=== PATIENT | female | born 1945 | race Asian ===

== ENCOUNTER 2016-07-30 12:56 | Outpatient (CLI) | payer OTHER ==
[~2016-07-30 12:56] MED LIST: ALBU90AE13 INH; ASPIRIN325 M2 PO; CARDIZEM LA360 MG PO; CETI10TA PO; DOCU SOFT100 MG PO; DULERA1 AE1 INH; HYZAAR1 TA2 PO; LIPITOR20 MG PO; LORTAB1 TAB PO; METOPROLOL25 M1 PO; RANI150T78 PO; SPIRIVA IN
== END 2016-07-30 19:09 | disposition home or self-care (01) ==
LOC: MAMMO 12:56
DX: Z12.31 Encounter for screening mammogram for malignant neoplasm of breast (principal)
CPT/HCPCS: G0202-TC

== ENCOUNTER 2016-08-10 14:00 | Outpatient (CLI) | payer OTHER | END 2016-08-10 20:13 | disposition home or self-care (01) | LOC: RAD 14:00 | DX: M54.5 Low back pain (principal) ==

== ENCOUNTER 2016-08-11 09:10 | Outpatient (CLI) | payer OTHER ==
[~2016-08-11] VITALS: Ht 157.5 cm; Wt 92.5 kg
[2016-08-11 09:20] VITALS: BP 117/53; TEMP 98.7
== END 2016-08-11 20:27 | disposition home or self-care (01) ==
LOC: INF 09:10
DX: M85.80 Other specified disorders of bone density and structure, unspecified site (principal)
CPT/HCPCS: 36415; 82310; 96372; J0897

== ENCOUNTER 2016-11-15 10:28 | Emergency (ER) | payer OTHER ==
[~2016-11-15] VITALS: Ht 157.5 cm; Wt 93.9 kg
[2016-11-15 12:12] VITALS: BP 109/57; TEMP 98.3
== END 2016-11-15 12:12 | disposition home or self-care (01) ==
LOC: ED 10:28
DX: S90.31XA Contusion of right foot, initial encounter (principal); S96.811A Strain of other specified muscles and tendons at ankle and foot level, right foot, initial encounter; M10.9 Gout, unspecified; X58.XXXA Exposure to other specified factors, initial encounter; Y92.098 Other place in other non-institutional residence as the place of occurrence of the external cause
CPT/HCPCS: 96372; 99283

== ENCOUNTER 2016-12-24 20:50 | Outpatient (CLI) | payer OTHER | END 2016-12-24 22:00 | LOC: RAD 20:50 | DX: M79.671 Pain in right foot (principal) ==

== ENCOUNTER 2017-04-14 16:23 | Observation (INO) | payer OTHER ==
[~2017-04-14] VITALS: Ht 157.5 cm; Wt 95.8 kg
[2017-04-14] VITALS (27 sets, daily range): BP systolic 068–215; BP diastolic 56–115; TEMP 98–98.4; Ht 157.5 cm; Wt 95.8 kg
[2017-04-14 16:42] LABS: PLATELET COUNT 535 K/uL (152-353)
[2017-04-14 16:54] LABS: POTASSIUM 4.3 mmol/L (3.6-5.2)
[2017-04-14] MEDS ORDERED: ZYRTEC ALLGY10 M1 OR (16:58)
[2017-04-14] MEDS ORDERED: ZANAFLEX2 MG PO (16:58)
[2017-04-14] MEDS ORDERED: MELOXICAM15 MG OR (16:58)
[2017-04-14] MEDS ORDERED: HYDROCO/APAP1 T14 PO (16:59)
[2017-04-14] MEDS ORDERED: GABA100C2 PO (16:59)
[2017-04-14] MEDS ORDERED: GLIP10TA55 PO (16:59)
[2017-04-14] MEDS ORDERED: DALIRESP500 MC1 OR (17:00)
[2017-04-14] MEDS ORDERED: COLC0.6T6 PO (17:00)
[2017-04-14 17:09] LABS: PARTIAL THROMBOPLASTIN TIME 26.1 SECONDS (24.5-33.6)
[2017-04-15] VITALS (30 sets, daily range): BP systolic 97–185; BP diastolic 48–89; TEMP 98–98.8
[2017-04-15 06:35] LABS: PLATELET COUNT 436 K/uL (152-353)
[2017-04-15 07:03] LABS: POTASSIUM 4.7 mmol/L (3.6-5.2)
[2017-04-15 16:07] LABS: PLATELET COUNT 455 K/uL (152-353)
== END 2017-04-15 19:25 | disposition home or self-care (01) ==
LOC: ED 16:23 → ICU 18:02
PROVIDERS: Family Medicine; ADMIT Specialist
DX: R07.89 Other chest pain (principal); I10 Essential (primary) hypertension; J44.9 Chronic obstructive pulmonary disease, unspecified; K21.9 Gastro-esophageal reflux disease without esophagitis; E11.9 Type 2 diabetes mellitus without complications
CPT/HCPCS: 36415; 80053; 81000; 82550; 82553; 82962; 84484; 85027; 85610; 85730; 87040; 93005; 94760; 96361; 96365; 96372; 96375; 99220; 99284; G0378; J1650; J2270; J3490

== ENCOUNTER 2017-06-13 09:06 | Emergency (ER) | payer OTHER ==
[~2017-06-13] VITALS: Ht 157.5 cm; Wt 96.2 kg
[~2017-06-13 09:06] MED LIST changes: +COLC0.6T6 PO; +DALIRESP500 MC1 OR; +GABA100C2 PO; +GLIP10TA55 PO; +HYDROCO/APAP1 T14 PO; +MELOXICAM15 MG OR; +ZANAFLEX2 MG PO; +ZYRTEC ALLGY10 M1 OR
[2017-06-13 09:10] VITALS: TEMP 98.2
[2017-06-13 10:15] LABS: PLATELET COUNT 470 K/uL (152-353)
[2017-06-13 10:23] LABS: POTASSIUM 4.8 mmol/L (3.6-5.2)
[2017-06-13 11:06] VITALS: BP 148/74
== END 2017-06-13 11:14 | disposition home or self-care (01) ==
LOC: ED 09:06
PROVIDERS: Specialist
DX: J44.1 Chronic obstructive pulmonary disease with (acute) exacerbation (principal)
CPT/HCPCS: 36600; 80053; 82550; 82553; 82805; 83880; 84484; 85027; 85379; 93005; 94664; 99284; J1100

== ENCOUNTER 2017-06-23 10:15 | Observation (INO) | payer OTHER ==
[~2017-06-23] VITALS: Ht 160 cm; Wt 93.1 kg
[2017-06-23 12:10] LABS: POTASSIUM 4.3 mmol/L (3.6-5.2)
[2017-06-23 12:48] LABS: PLATELET COUNT 671 K/uL (152-353)
[2017-06-23 13:54] VITALS: BP 100/42; TEMP 98.9; Ht 160 cm; Wt 93.1 kg
[2017-06-23 16:00] VITALS: BP 100/42; TEMP 98.9
[2017-06-23 20:00] VITALS: BP 122/48; TEMP 99
[2017-06-24] VITALS: BP 145/46; TEMP 98.2
[2017-06-24 04:00] VITALS: BP 129/48; TEMP 98.2
[2017-06-24 05:09] LABS: PLATELET COUNT 566 K/uL (152-353)
[2017-06-24 07:57] VITALS: BP 144/52; TEMP 98.2
[2017-06-24 08:44] LABS: POTASSIUM 4.2 mmol/L (3.6-5.2)
[2017-06-24 12:00] VITALS: BP 123/43; TEMP 98.5
[2017-06-24 15:50] VITALS: BP 108/48; TEMP 98.4
[2017-06-24 20:00] VITALS: BP 168/72; TEMP 98.2
[2017-06-25] VITALS: BP 157/67; TEMP 98.7
[2017-06-25 04:00] VITALS: BP 112/87; TEMP 98.7
[2017-06-25 08:14] VITALS: BP 141/96; TEMP 98.5
[2017-06-25 12:00] VITALS: BP 156/56; TEMP 98.5
[2017-06-25 16:20] VITALS: BP 120/46; TEMP 98.7
== END 2017-06-25 16:50 | disposition home or self-care (01) ==
LOC: MED/SURG 10:15
PROVIDERS: ADMIT Family Medicine
DX: J18.9 Pneumonia, unspecified organism (principal); J44.9 Chronic obstructive pulmonary disease, unspecified; I10 Essential (primary) hypertension; E13.65 Other specified diabetes mellitus with hyperglycemia
CPT/HCPCS: 36415; 80053; 82948; 83735; 83880; 85027; 87040; 87070; 87077; 87186; 87205; 93005; 94640; 94664; 94760; 96367; 96372; 96374; 96375; 99220; G0378; G0379; J1815; J1885; J2930

== ENCOUNTER 2017-07-07 06:52 | Outpatient (CLI) | payer OTHER | END 2017-07-07 06:57 | disposition short-term general hospital (02) | LOC: AMB 06:52 | DX: R07.89 Other chest pain (principal); I10 Essential (primary) hypertension | CPT/HCPCS: A0425; A0427 ==

== ENCOUNTER 2017-07-07 06:58 | Emergency (ER) | payer OTHER ==
[~2017-07-07] VITALS: Ht 157.5 cm; Wt 89.8 kg
[2017-07-07 08:20] LABS: PLATELET COUNT 565 K/uL (152-353)
[2017-07-07 09:23] VITALS: BP 134/84; TEMP 99.4
== END 2017-07-07 09:23 | disposition home or self-care (01) ==
LOC: ED 06:58
DX: J44.1 Chronic obstructive pulmonary disease with (acute) exacerbation (principal); J40 Bronchitis, not specified as acute or chronic; R00.0 Tachycardia, unspecified
CPT/HCPCS: 82550; 84484; 85027; 87081; 87804; 87880; 93005; 94760; 99284

== ENCOUNTER 2017-07-15 17:26 | Emergency (ER) | payer OTHER ==
[~2017-07-15] VITALS: Ht 157.5 cm; Wt 86.2 kg
[2017-07-15 19:18] VITALS: BP 143/57; TEMP 98
== END 2017-07-15 19:19 | disposition home or self-care (01) ==
LOC: ED 17:26
DX: R42 Dizziness and giddiness (principal)
CPT/HCPCS: 99283

== ENCOUNTER 2017-07-18 18:26 | Emergency (ER) | payer OTHER ==
[~2017-07-18] VITALS: Ht 157.5 cm; Wt 86.2 kg
[2017-07-18 20:08] LABS: PLATELET COUNT 509 K/uL (152-353)
[2017-07-18 20:15] LABS: POTASSIUM 4.2 mmol/L (3.6-5.2)
[2017-07-18 20:50] VITALS: BP 170/72; TEMP 08.2
== END 2017-07-18 20:50 | disposition home or self-care (01) ==
LOC: ED 18:26
PROVIDERS: Specialist
DX: I10 Essential (primary) hypertension (principal)
CPT/HCPCS: 36415; 80048; 81000; 85027; 99283

== ENCOUNTER 2017-08-11 10:02 | Outpatient (CLI) | payer OTHER | END 2017-08-11 19:19 | disposition home or self-care (01) | LOC: CT 10:02 | DX: R93.8 Abnormal findings on diagnostic imaging of other specified body structures (principal) ==

== ENCOUNTER 2017-09-06 09:50 | Outpatient (CLI) | payer OTHER ==
[2017-09-06 10:12] LABS: PLATELET COUNT 582 K/uL (152-353)
[2017-09-06 10:18] LABS: POTASSIUM 4.4 mmol/L (3.6-5.2)
== END 2017-09-06 19:19 | disposition home or self-care (01) ==
LOC: LABW 09:50
PROVIDERS: Specialist
DX: R93.1 Abnormal findings on diagnostic imaging of heart and coronary circulation (principal)
CPT/HCPCS: 36415; 80053; 85027

== ENCOUNTER 2017-09-13 17:54 | Emergency (ER) | payer OTHER ==
[~2017-09-13] VITALS: Ht 157.5 cm; Wt 95.3 kg
[2017-09-13 19:00] LABS: POTASSIUM 3.9 mmol/L (3.6-5.2)
[2017-09-13 19:45] VITALS: BP 156/67; TEMP 98.1
== END 2017-09-13 19:45 | disposition home or self-care (01) ==
LOC: ED 17:54
DX: I10 Essential (primary) hypertension (principal); E11.65 Type 2 diabetes mellitus with hyperglycemia
CPT/HCPCS: 36415; 80053; 82962; 99283

== ENCOUNTER 2017-09-18 11:39 | Outpatient (CLI) | payer OTHER | END 2017-09-18 22:25 | disposition home or self-care (01) | LOC: LABW 11:39 | DX: D72.828 Other elevated white blood cell count (principal) | CPT/HCPCS: 81000 ==

== ENCOUNTER 2017-10-01 10:01 | Outpatient (CLI) | payer OTHER ==
[2017-10-01 10:14] LABS: PLATELET COUNT 521 K/uL (152-353)
[2017-10-01 10:25] LABS: POTASSIUM 4.1 mmol/L (3.6-5.2)
== END 2017-10-01 19:04 | disposition home or self-care (01) ==
LOC: LABW 10:01
PROVIDERS: Specialist
DX: R93.1 Abnormal findings on diagnostic imaging of heart and coronary circulation (principal); Z01.810 Encounter for preprocedural cardiovascular examination
CPT/HCPCS: 36415; 80053; 85027

== ENCOUNTER 2018-03-18 09:13 | Outpatient (CLI) | payer OTHER | END 2018-03-18 19:37 | disposition home or self-care (01) | LOC: MAMMO 09:13 | DX: Z13.820 Encounter for screening for osteoporosis (principal); Z12.31 Encounter for screening mammogram for malignant neoplasm of breast; Z78.0 Asymptomatic menopausal state ==

== ENCOUNTER 2018-03-30 10:12 | Outpatient (CLI) | payer OTHER | END 2018-03-30 21:00 | disposition home or self-care (01) | LOC: RAD 10:12 | DX: M25.562 Pain in left knee (principal) ==

== ENCOUNTER 2018-04-19 15:39 | Outpatient (CLI) | payer OTHER ==
[2018-04-19] MEDS ORDERED: TRAMADOL HYDROC50 MG PO (19:00)
[2018-04-19] MEDS ORDERED: PRAVACHOL20 MG PO (19:03)
[2018-04-19] MEDS ORDERED: GLUCOSAMINE CHONDRO1 PO (19:07)
[2018-04-19] MEDS ORDERED: FLUTICASON50 MCG/AC1 NAS (19:09)
[2018-04-19] MEDS ORDERED: COLCRYS 0.6MG0.6 MG PO ×2 (19:09→19:18)
[2018-04-19] MEDS ORDERED: COZAAR25 MG PO (19:10)
[2018-04-19] MEDS ORDERED: HYZAAR1 TA2 PO (19:11)
[2018-04-19] MEDS ORDERED: MECLIZINE25 MG PO (19:12)
[2018-04-19] MEDS ORDERED: DOCU100C10 PO (19:12)
[2018-04-19] MEDS ORDERED: ULORIC80 MG PO (19:13)
[2018-04-19] MEDS ORDERED: CARTIA XT240 MG PO (19:14)
[2018-04-19] MEDS ORDERED: ISOSORB MONO20 MG PO (19:15)
[2018-04-19] MEDS ORDERED: FEROSUL325 MG PO (19:16)
== END 2018-04-19 15:43 | disposition short-term general hospital (02) ==
LOC: AMB 15:39
DX: J44.1 Chronic obstructive pulmonary disease with (acute) exacerbation (principal)
CPT/HCPCS: A0425; A0427

== ENCOUNTER 2018-04-19 15:47 | Inpatient (IN) | payer OTHER ==
[2018-04-19] VITALS (8 sets, daily range): BP systolic 125–221; BP diastolic 56–93; TEMP 97.7–97.9; Ht 157.5 cm; Wt 103.9 kg
[~2018-04-19] VITALS: Ht 157.5 cm; Wt 103.9 kg
[2018-04-19 16:32] LABS: PLATELET COUNT 589 K/uL (152-353)
[2018-04-19] MEDS ORDERED: TRAMADOL HYDROC50 MG PO (19:00)
[2018-04-19] MEDS ORDERED: PRAVACHOL20 MG PO (19:03)
[2018-04-19] MEDS ORDERED: GLUCOSAMINE CHONDRO1 PO (19:07)
[2018-04-19] MEDS ORDERED: FLUTICASON50 MCG/AC1 NAS (19:09)
[2018-04-19] MEDS ORDERED: COLCRYS 0.6MG0.6 MG PO ×2 (19:09→19:18)
[2018-04-19] MEDS ORDERED: COZAAR25 MG PO (19:10)
[2018-04-19] MEDS ORDERED: HYZAAR1 TA2 PO (19:11)
[2018-04-19] MEDS ORDERED: MECLIZINE25 MG PO (19:12)
[2018-04-19] MEDS ORDERED: DOCU100C10 PO (19:12)
[2018-04-19] MEDS ORDERED: ULORIC80 MG PO (19:13)
[2018-04-19] MEDS ORDERED: CARTIA XT240 MG PO (19:14)
[2018-04-19] MEDS ORDERED: ISOSORB MONO20 MG PO (19:15)
[2018-04-19] MEDS ORDERED: FEROSUL325 MG PO (19:16)
[2018-04-20 00:11] VITALS: BP 155/75; TEMP 98.2
[2018-04-20 04:00] VITALS: BP 174/82; TEMP 98.2
[2018-04-20 08:08] VITALS: BP 180/76; TEMP 98.2
[2018-04-20 12:18] VITALS: BP 143/61; TEMP 98
[2018-04-20 16:22] VITALS: BP 128/68; TEMP 98.3
[2018-04-20 20:12] VITALS: BP 149/70; TEMP 98.7
[2018-04-21 00:24] VITALS: BP 148/63; TEMP 98.5
[2018-04-21 04:00] VITALS: BP 163/74; TEMP 98.3
[2018-04-21 05:05] LABS: PLATELET COUNT 457 K/uL (152-353)
[2018-04-21 05:22] LABS: POTASSIUM 3.7 mmol/L (3.6-5.2)
[2018-04-21 08:00] VITALS: BP 185/81; TEMP 99.2
[2018-04-21 12:00] VITALS: BP 150/63; TEMP 98.8
[2018-04-21 16:00] VITALS: BP 117/54; TEMP 98.5
[2018-04-21 20:00] VITALS: BP 158/57; TEMP 98.3
[2018-04-22 00:19] VITALS: BP 142/54; TEMP 98.4
[2018-04-22 04:24] VITALS: BP 95/55; TEMP 98.6
[2018-04-22 08:02] VITALS: BP 113/93; TEMP 97.7
[2018-04-22 12:16] VITALS: BP 158/56; TEMP 98.2
[2018-04-22 12:32] LABS: PLATELET COUNT 448 K/uL (152-353)
[2018-04-22 12:47] LABS: POTASSIUM 3.5 mmol/L (3.6-5.2)
[2018-04-22] MEDS ORDERED: LEVO250T2 PO (15:09)
== END 2018-04-22 16:15 | disposition home or self-care (01) | DRG 190 ==
LOC: ED 15:47 → MED/SURG 17:45
PROVIDERS: ADMIT Family Medicine
DX: J44.0 Chronic obstructive pulmonary disease with (acute) lower respiratory infection (principal); J81.0 Acute pulmonary edema; J20.9 Acute bronchitis, unspecified; J44.1 Chronic obstructive pulmonary disease with (acute) exacerbation; E87.6 Hypokalemia; D50.8 Other iron deficiency anemias; I10 Essential (primary) hypertension; E11.42 Type 2 diabetes mellitus with diabetic polyneuropathy; Z85.118 Personal history of other malignant neoplasm of bronchus and lung; E78.49 Other hyperlipidemia; M25.50 Pain in unspecified joint
CPT/HCPCS: 36415; 36600; 51702; 80053; 81000; 82728; 82805; 83540; 83880; 84484; 85027; 90658; 93005; 94640; 94664; 94760; 96374; 96375; 99284; J1650; J1815; J1940; J1956; J2930; J3490

== ENCOUNTER 2018-05-16 09:32 | Day surgery (SDC) | payer OTHER ==
[~2018-05-16 09:32] MED LIST changes: +CARTIA XT240 MG PO; +COLCRYS 0.6MG0.6 MG PO; +COZAAR25 MG PO; +DOCU100C10 PO; +FEROSUL325 MG PO; +FLUTICASON50 MCG/AC1 NAS; +GLUCOSAMINE CHONDRO1 PO; +ISOSORB MONO20 MG PO; +LEVO250T2 PO; +MECLIZINE25 MG PO; +PRAVACHOL20 MG PO; +TRAMADOL HYDROC50 MG PO; +ULORIC80 MG PO
== END 2018-05-16 12:10 | disposition home or self-care (01) ==
LOC: OR 09:32
PROC: 08RJ3JZ Replacement of Right Lens with Synthetic Substitute, Percutaneous Approach (ICD-10-PCS; principal; 2018-05-16)
DX: H25.811 Combined forms of age-related cataract, right eye (principal)
CPT/HCPCS: 66984; V2632

== ENCOUNTER 2018-05-27 14:05 | Emergency (ER) | payer OTHER ==
[~2018-05-27] VITALS: Ht 157.5 cm; Wt 103.9 kg
[2018-05-27 15:12] VITALS: BP 204/89; TEMP 98.2
== END 2018-05-27 15:13 | disposition home or self-care (01) ==
LOC: ED 14:05
DX: J01.80 Other acute sinusitis (principal); I10 Essential (primary) hypertension
CPT/HCPCS: 99281; 99282

== ENCOUNTER 2018-05-28 18:27 | Emergency (ER) | payer OTHER ==
[~2018-05-28] VITALS: Ht 157.5 cm; Wt 103.9 kg
[2018-05-28 19:26] VITALS: BP 164/69; TEMP 98.2
== END 2018-05-28 19:28 | disposition home or self-care (01) ==
LOC: ED 18:27
DX: I10 Essential (primary) hypertension (principal); R51 Headache
CPT/HCPCS: 99281

== ENCOUNTER 2018-06-06 07:36 | Emergency (ER) | payer OTHER ==
[~2018-06-06] VITALS: Ht 157.5 cm; Wt 91.2 kg
[2018-06-06 09:02] LABS: PLATELET COUNT 570 K/uL (152-353)
[2018-06-06 09:13] LABS: POTASSIUM 3.8 mmol/L (3.6-5.2)
[2018-06-06 09:45] VITALS: BP 161/55; TEMP 98
== END 2018-06-06 09:45 | disposition home or self-care (01) ==
LOC: ED 07:36
PROVIDERS: Internal Medicine
DX: N39.0 Urinary tract infection, site not specified (principal); D72.828 Other elevated white blood cell count; I10 Essential (primary) hypertension; E11.9 Type 2 diabetes mellitus without complications
CPT/HCPCS: 36415; 80053; 81000; 85027; 99283

== ENCOUNTER 2018-06-24 17:25 | Outpatient (CLI) | payer OTHER ==
[2018-06-24] MEDS ORDERED: LABETALOL200 MG PO (18:00)
[2018-06-24] MEDS ORDERED: HYZAAR1 TA2 PO (18:02)
[2018-06-24] MEDS ORDERED: GLIP10TA55 PO (18:02)
[2018-06-24] MEDS ORDERED: CLON0.1T16 PO (18:03)
[2018-06-24] MEDS ORDERED: COZAAR100 MG PO (18:04)
== END 2018-06-24 17:30 | disposition short-term general hospital (02) ==
LOC: AMB 17:25
DX: I10 Essential (primary) hypertension (principal)
CPT/HCPCS: A0425; A0427

== ENCOUNTER 2018-06-24 17:47 | Emergency (ER) | payer OTHER ==
[~2018-06-24] VITALS: Ht 157.5 cm; Wt 90.3 kg
[2018-06-24] MEDS ORDERED: LABETALOL200 MG PO (18:00)
[2018-06-24] MEDS ORDERED: GLIP10TA55 PO (18:02)
[2018-06-24] MEDS ORDERED: HYZAAR1 TA2 PO (18:02)
[2018-06-24] MEDS ORDERED: CLON0.1T16 PO (18:03)
[2018-06-24] MEDS ORDERED: COZAAR100 MG PO (18:04)
[2018-06-24 18:48] VITALS: BP 151/97; TEMP 97.5
== END 2018-06-24 18:48 | disposition home or self-care (01) ==
LOC: ED 17:47
DX: I10 Essential (primary) hypertension (principal); E11.649 Type 2 diabetes mellitus with hypoglycemia without coma
CPT/HCPCS: 99282

== ENCOUNTER 2018-07-11 07:40 | Day surgery (SDC) | payer OTHER ==
[~2018-07-11] VITALS: Ht 30.5 cm; Wt 0.5 kg
[~2018-07-11 07:40] MED LIST changes: +CLON0.1T16 PO; +COZAAR100 MG PO; +LABETALOL200 MG PO
== END 2018-07-11 11:50 | disposition home or self-care (01) ==
LOC: OR 07:40
PROC: 08RK3JZ Replacement of Left Lens with Synthetic Substitute, Percutaneous Approach (ICD-10-PCS; principal; 2018-07-11)
DX: H25.812 Combined forms of age-related cataract, left eye (principal)
CPT/HCPCS: 66984; J2250; V2632

== ENCOUNTER 2018-07-12 07:50 | Outpatient (CLI) | payer OTHER | END 2018-07-12 22:59 | disposition home or self-care (01) | LOC: LABW 07:50 | PROVIDERS: Nurse Practitioner Adult Health | DX: I25.10 Atherosclerotic heart disease of native coronary artery without angina pectoris (principal); E78.2 Mixed hyperlipidemia; Z79.899 Other long term (current) drug therapy | CPT/HCPCS: 36415; 80061; 80076 ==

== ENCOUNTER 2018-07-29 12:50 | Observation (INO) | payer OTHER ==
[~2018-07-29] VITALS: Ht 157.5 cm; Wt 91.7 kg
[2018-07-29 13:25] VITALS: BP 189/78; TEMP 98.2; Ht 157.5 cm; Wt 91.7 kg
[2018-07-29 13:41] LABS: PLATELET COUNT 451 K/uL (152-353)
[2018-07-29 13:49] LABS: POTASSIUM 3.5 mmol/L (3.6-5.2)
[2018-07-29 14:14] LABS: PARTIAL THROMBOPLASTIN TIME 25.5 SECONDS (24.5-33.6)
[2018-07-29 16:00] VITALS: BP 152/57; TEMP 98.3
[2018-07-29 20:00] VITALS: BP 170/86; TEMP 98.2
[2018-07-30] VITALS: BP 196/72; TEMP 98.6
[2018-07-30 04:00] VITALS: BP 196/68; TEMP 98.5
[2018-07-30] MEDS ORDERED: ASPIRIN325 M1 PO (06:56)
[2018-07-30] MEDS ORDERED: ANORO ELLIPTA 61 AER INH (06:57)
[2018-07-30] MEDS ORDERED: GABA100C2 PO (06:59)
[2018-07-30] MEDS ORDERED: LABETALOL200 MG PO (07:02)
[2018-07-30 08:00] VITALS: BP 175/70; TEMP 98.4
[2018-07-30 12:05] VITALS: BP 146/64; TEMP 98.1
== END 2018-07-30 13:25 | disposition home or self-care (01) ==
LOC: MED/SURG 12:50
PROVIDERS: ADMIT Family Medicine
DX: R07.89 Other chest pain (principal); E87.79 Other fluid overload; R42 Dizziness and giddiness; I10 Essential (primary) hypertension
CPT/HCPCS: 36415; 80053; 82550; 83880; 84484; 85027; 85610; 85730; 93005; 96372; 99220; G0378; G0379; J1650

== ENCOUNTER 2018-08-22 09:07 | Outpatient (CLI) | payer OTHER ==
[~2018-08-22 09:07] MED LIST changes: +ANORO ELLIPTA 61 AER INH; +ASPIRIN325 M1 PO
== END 2018-08-22 19:56 | disposition home or self-care (01) ==
LOC: RAD 09:07
DX: M17.0 Bilateral primary osteoarthritis of knee (principal); M06.4 Inflammatory polyarthropathy

== ENCOUNTER 2019-03-07 13:20 | Outpatient (CLI) | payer OTHER ==
[~2019-03-07] VITALS: Ht 157.5 cm; Wt 92.5 kg
[2019-03-07 13:45] VITALS: BP 163/67; TEMP 99.2
== END 2019-03-07 17:50 | disposition home or self-care (01) ==
LOC: INF 13:20
DX: E86.0 Dehydration (principal)
CPT/HCPCS: 96360; 96361

== ENCOUNTER 2019-03-28 23:31 | Outpatient (CLI) | payer OTHER | END 2019-03-28 23:35 | disposition short-term general hospital (02) | LOC: AMB 23:31 | DX: R06.02 Shortness of breath (principal) | CPT/HCPCS: A0425; A0427 ==

== ENCOUNTER 2019-03-28 23:40 | Emergency (ER) | payer OTHER ==
[~2019-03-28] VITALS: Ht 157.5 cm; Wt 92.5 kg
[2019-03-29 00:15] LABS: PLATELET COUNT 570 K/uL (152-353)
[2019-03-29 00:24] LABS: POTASSIUM 3.5 mmol/L (3.6-5.2)
[2019-03-29 02:32] VITALS: BP 169/94; TEMP 99.3
== END 2019-03-29 02:33 | disposition short-term general hospital (02) ==
LOC: ED 23:40
PROVIDERS: Emergency Medicine
DX: R06.09 Other forms of dyspnea (principal); J44.9 Chronic obstructive pulmonary disease, unspecified; C34.90 Malignant neoplasm of unspecified part of unspecified bronchus or lung; J18.9 Pneumonia, unspecified organism; R00.0 Tachycardia, unspecified
CPT/HCPCS: 80053; 83605; 83735; 83880; 84484; 85027; 85379; 87040; 87502; 93005; 94664; 96372; 96374; 99285; J0696; J1940; J2930; J3475

== ENCOUNTER 2019-08-22 17:26 | Outpatient (CLI) | payer OTHER ==
[2019-08-22 18:59] LABS: POTASSIUM 3.5 mmol/L (3.6-5.2)
== END 2019-08-22 21:53 | disposition home or self-care (01) ==
LOC: LAB 17:26
PROVIDERS: Family Medicine
DX: E11.9 Type 2 diabetes mellitus without complications (principal)
CPT/HCPCS: 80053; 83036

== ENCOUNTER 2019-08-23 15:09 | Outpatient (CLI) | payer OTHER | END 2019-08-23 21:18 | disposition home or self-care (01) | LOC: US 15:09 | DX: M79.604 Pain in right leg (principal); Z13.820 Encounter for screening for osteoporosis; Z78.0 Asymptomatic menopausal state ==

== ENCOUNTER 2019-11-06 14:34 | Emergency (ER) | payer OTHER ==
[~2019-11-06] VITALS: Ht 157.5 cm; Wt 93.0 kg
[2019-11-06 15:30] LABS: POTASSIUM 3.4 mmol/L (3.6-5.2); SODIUM 138 mmol/L (136-145)
[2019-11-06 16:00] VITALS: TEMP 99
[2019-11-06 17:46] VITALS: BP 120/57
== END 2019-11-06 21:01 ==
LOC: ED 14:34
PROVIDERS: Family Medicine
DX: J44.1 Chronic obstructive pulmonary disease with (acute) exacerbation (principal); N39.0 Urinary tract infection, site not specified; Z03.818 Encounter for observation for suspected exposure to other biological agents ruled out
CPT/HCPCS: 36600; 80053; 81000; 82550; 82553; 82805; 83605; 84484; 87040; 87077; 87086; 87088; 87186; 87205; 87502; 87635; 87651; 93005; 96365; 96375; 99284; J0132; J0696; J2930; U0002

== ENCOUNTER 2020-03-27 14:14 | Outpatient (CLI) | payer OTHER | END 2020-03-27 23:25 | disposition home or self-care (01) | LOC: MAMMO 14:14 | DX: Z12.31 Encounter for screening mammogram for malignant neoplasm of breast (principal) ==

== ENCOUNTER 2020-04-02 20:13 | Inpatient (IN) | payer OTHER ==
[~2020-04-02] VITALS: Ht 157.5 cm; Wt 99.4 kg
[2020-04-02 20:18] VITALS: BP 180/91; TEMP 98.9
[2020-04-02 20:42] LABS: PLATELET COUNT 508 K/uL (152-353)
[2020-04-02 21:00] VITALS: BP 187/67; TEMP 98.7
[2020-04-02 21:01] LABS: POTASSIUM 3.4 mmol/L (3.6-5.2)
[2020-04-02 22:00] VITALS: BP 178/72; TEMP 99
[2020-04-03] VITALS (7 sets, daily range): BP systolic 118–195; BP diastolic 59–99; TEMP 98–98.3; Ht 157.5 cm; Wt 99.4 kg
[2020-04-03 04:46] LABS: PLATELET COUNT 493 K/uL (152-353)
[2020-04-03 05:39] LABS: POTASSIUM 3.8 mmol/L (3.6-5.2)
[2020-04-03] MEDS ORDERED: NEURONTIN 100M100 MG PO (09:44)
[2020-04-03] MEDS ORDERED: AMLODIPINE BESYLATE PO (09:47)
[2020-04-03] MEDS ORDERED: HYDROCHLOROT12.5 M1 PO (09:52)
[2020-04-03] MEDS ORDERED: CLARITIN10 MG PO (09:52)
[2020-04-03] MEDS ORDERED: LOSA50TA PO (09:54)
[2020-04-03] MEDS ORDERED: GLIP10TA55 PO (09:58)
[2020-04-03] MEDS ORDERED: VITA D-1000 PO (09:58)
[2020-04-04 04:00] VITALS: BP 143/66; TEMP 98.4
[2020-04-04 06:26] LABS: PLATELET COUNT 532 K/uL (152-353)
[2020-04-04 06:37] LABS: POTASSIUM 3.5 mmol/L (3.6-5.2)
[2020-04-04 07:58] VITALS: BP 173/68; TEMP 97.9
[2020-04-04 11:45] VITALS: BP 159/82; TEMP 97.9
[2020-04-04 16:00] VITALS: BP 158/67; TEMP 98.1
[2020-04-04 20:00] VITALS: BP 127/44; TEMP 97.4
[2020-04-04 23:52] VITALS: BP 142/70; TEMP 97.5
[2020-04-05 03:46] VITALS: BP 132/44; TEMP 97.9
[2020-04-05 08:00] VITALS: BP 157/76; TEMP 98.7
[2020-04-05 12:00] VITALS: BP 119/62; TEMP 97.7
[2020-04-05] MEDS ORDERED: AZIT250T3 PO (16:46)
[2020-04-05] MEDS ORDERED: PRED20TA27 PO ×2 (16:47→16:48)
[2020-04-05] MEDS ORDERED: PRED10TA27 PO (16:49)
== END 2020-04-05 17:06 | disposition home or self-care (01) | DRG 194 ==
LOC: ED 20:13 → MED/SURG 22:23
PROVIDERS: Internal Medicine; ADMIT Emergency Medicine Emergency Medical Services
DX: J18.8 Other pneumonia, unspecified organism (principal); J44.1 Chronic obstructive pulmonary disease with (acute) exacerbation; C78.01 Secondary malignant neoplasm of right lung; I10 Essential (primary) hypertension; E11.42 Type 2 diabetes mellitus with diabetic polyneuropathy; Z72.0 Tobacco use
CPT/HCPCS: 36415; 80053; 83605; 83880; 85027; 87040; 87635; 94760; 96365; 96366; 96375; 99284; J0456; J0696; J1100; J1650; J2060; J2920; Q9963; U0003

== ENCOUNTER 2020-04-13 10:01 | Inpatient (IN) | payer OTHER ==
[2020-04-13] VITALS (10 sets, daily range): BP systolic 118–195; BP diastolic 59–81; TEMP 98.1–99.1; Ht 157.5 cm; Wt 104.8 kg
[~2020-04-13] VITALS: Ht 157.5 cm; Wt 104.8 kg
[~2020-04-13 10:01] MED LIST changes: +AMLODIPINE BESYLATE PO; +AZIT250T3 PO; +CLARITIN10 MG PO; +HYDROCHLOROT12.5 M1 PO; +LOSA50TA PO; +NEURONTIN 100M100 MG PO; +PRED10TA27 PO; +PRED20TA27 PO; +VITA D-1000 PO
[2020-04-13 10:57] LABS: PLATELET COUNT 531 K/uL (152-353)
[2020-04-13 11:07] LABS: POTASSIUM 3.5 mmol/L (3.6-5.2); SODIUM 142 mmol/L (136-145)
[2020-04-14] VITALS (24 sets, daily range): BP systolic 122–180; BP diastolic 50–88; TEMP 98–99.1
[2020-04-14 05:54] LABS: PLATELET COUNT 441 K/uL (152-353)
[2020-04-14 06:03] LABS: POTASSIUM 4.2 mmol/L (3.6-5.2)
[2020-04-15] VITALS (17 sets, daily range): BP systolic 132–196; BP diastolic 59–102; TEMP 97.4–98.6
[2020-04-15 05:06] LABS: PLATELET COUNT 547 K/uL (152-353)
[2020-04-15 05:21] LABS: POTASSIUM 4.2 mmol/L (3.6-5.2)
[2020-04-16 00:03] VITALS: BP 163/83; TEMP 98.1
[2020-04-16 04:00] VITALS: BP 163/61; TEMP 98.2
[2020-04-16 05:13] LABS: PLATELET COUNT 524 K/uL (152-353)
[2020-04-16 05:25] LABS: POTASSIUM 4.2 mmol/L (3.6-5.2)
[2020-04-16 08:00] VITALS: BP 179/70; TEMP 98.2
[2020-04-16 12:00] VITALS: BP 191/64; TEMP 98
[2020-04-16 16:00] VITALS: BP 186/67; TEMP 98.1
== END 2020-04-16 17:35 | disposition short-term general hospital (02) | DRG 186 ==
LOC: ED 10:01 → MED/SURG 12:43 → ICU 12:43 → MED/SURG 04-15 15:15
PROVIDERS: Internal Medicine Endocrinology, Diabetes & Metabolism; ADMIT Family Medicine
DX: J90 Pleural effusion, not elsewhere classified (principal); J96.21 Acute and chronic respiratory failure with hypoxia; J44.1 Chronic obstructive pulmonary disease with (acute) exacerbation; C34.91 Malignant neoplasm of unspecified part of right bronchus or lung; E78.49 Other hyperlipidemia; D63.8 Anemia in other chronic diseases classified elsewhere; Z72.0 Tobacco use; I11.0 Hypertensive heart disease with heart failure; I50.9 Heart failure, unspecified
CPT/HCPCS: 36415; 80048; 80053; 82553; 82805; 83605; 83880; 84484; 85027; 87635; 93005; 94660; 94664; 94760; 96374; 99284; J0456; J0696; J1650; J1815; J1940; J2060; J2270; J2920; J2930; U0003